=== PATIENT | female | born 1965 | race Caucasian/White ===

== ENCOUNTER 2016-07-02 15:37 | Inpatient (IN) ==
[2016-07-02] MEDS ORDERED: 0.9 % Sodium Chloride 1,000 ML IVC ONE (16:28)
[2016-07-02] MEDS ORDERED: *HR* HYDROmorphone (PF) 1 MG/ML SYRINGE IVP ONE (16:28)
[2016-07-02] MEDS ORDERED: Ondansetron 4 MG/2 ML VIAL IVP ONE (16:28)
--- NOTE | 2016-07-02 16:34 | Emergency Department Note ---
Disposition Clinical Impression: Acute abdomen, Small bowel obstruction with strangulation or infarction Disposition: Admitted As Inpatient Condition: Critical Referrals: Alfred Roblero DO [Primary Care Provider] - Forms: ED Satisfaction Letter Time of Disposition: 18:59 Abdominal Pain HPI - General Chief Complaint: ED GI Bleed Stated Complaint: GIB, abd pain Time Seen by Provider: 07/02/16 16:18 Source: patient, EMS Mode of arrival: EMS Limitations: no limitations Nursing Notes Reviewed: Yes Vital Signs Reviewed: Yes - History of Present Illness Pt Subjective Complaint: abdominal pain Onset (ago): hour(s) Consistency: constant Location: diffuse Pain Severity: severe Pain Scale: 10 Quality: stabbing Migration to: no migration Improves with: nothing Worsens with: nothing Associated symptoms: Reports: nausea, hematochezia (History reports 4 episodes of bright red blood per rectum since the onset of pain in the early hours of the morning.). Denies: vomiting Treatments prior to arrival: none - Related Data Allergies Allergy/AdvReac Type Severity Reaction Status Date / Time No Known Allergies Allergy Verified 07/02/16 16:01 All systems ED: reviewed and negative except as stated. Constitutional: Denies: fever, chills ENT ED: Denies: ear pain, throat pain Cardiovascular: Denies: chest pain, palpitations Respiratory: Reports: dyspnea. Denies: cough Gastrointestinal: Reports: abdominal pain, nausea, hematochezia. Denies: vomiting Genitourinary: Denies: urgency Musculoskeletal: Denies: back pain Integumentary: Denies: rash Abdominal Pain PMH - Past Medical History Medical history: Reports: hypertension Female Surgical History: Reports: other - Social History Smoking status: Current every day smoker Alcohol use: Reports: heavy, recent Drug use: Reports: marijuana Physical Exam - General Limitations: no limitations General appearance: alert, anxious, in distress (Seems to be in pain) - Head Head exam: atraumatic, normocephalic - Eye Eye exam: Present: normal appearance, PERRL, EOMI - ENT ENT exam: normal exam, normal oropharynx, mucous membranes dry, normal external ear exam - Neck Neck exam: Present: normal inspection, full ROM - Chest Chest inspection: Present: normal inspection, symmetric chest wall rise. Absent : tenderness - Respiratory Respiratory exam: Present: normal lung sounds bilaterally. Absent: respiratory distress, wheezes - Cardiovascular Cardiovascular exam: Present: normal rhythm, tachycardia, normal heart sounds - Abdominal Exam Abdominal exam: Present: tenderness, distention, guarding Abdominal tenderness: Present: diffuse, severe - Extremities Exam Extremities exam: Present: normal inspection, full ROM. Absent: pedal edema - Neurological Exam Neurological exam: Present: alert, oriented X3 - Psychiatric Psychiatric exam: Present: normal affect, normal mood - Skin Skin exam: Present: warm, dry. Absent: rash Course Course Narrative: Patient presents with abrupt onset of severe abdominal pain that woke her from sleep and early hours of the morning. This is progressively worsened. It is diffuse. On physical exam she is actually tender everywhere in the belly. Bowel sounds are very diminished. She is also anxious and hyperventilating. She reports for bright red bloody bowel movements since the onset of the pain. I am going to get her some pain medicines and some nausea medicines before I performed a rectal exam. I am initiating a belly pain workup combined with a GI bleed workup. Most likely the patient will require admission if she is passing that much blood. Disposition will be based on diagnostic results and reevaluation. - Reevaluation(s) Reevaluation #1: Patient states that she is not feeling a lot better after medications. She has gotten 2 L of fluid, which is about 40 mL per kilo. She has made some urine. Belly exam is not changed. CAT scan came back and shows dilated loops of proximal small bowel with gastric distention and ascites fluid. The rectal exam showed grossly bloody stool in the rectal vault. I discussed the case with the surgeon. He recommended an NG tube and he is on his way in to see the patient. Time: 18:27 - Consultations Consultation #1: Dr. Harp, general surgery - I discussed the case with the general surgeon. We reviewed the history, physical exam, labs and imaging study results. He reviewed the imaging studies from his remote location. He recommended NG tube insertion. He states he is coming to see the patient Time: 18:28 Consultation #2: Dr. Harp, general surgery - measurements here in the emergency room seeing the patient. He is concerned that she has bowel secondary to an internal abdominal hernia incarceration. He is scrambling to get this patient to the operating room. He has given orders to the nurse for antibiotics. Time: 18:58 Vital Signs Temperature 98.9 F 07/02/16 15:47 Pulse Rate 108 07/02/16 15:47 Respiratory Rate 20 07/02/16 15:47 Blood Pressure 109/84 07/02/16 15:47 O2 Sat by Pulse Oximetry 98 07/02/16 15:47 Temperature 98.9 F 07/02/16 15:47 Pulse Rate 108 07/02/16 15:47 Respiratory Rate 20 07/02/16 15:47 Blood Pressure 109/84 07/02/16 15:47 O2 Sat by Pulse Oximetry 98 07/02/16 15:47 Oxygen Delivery Oxygen Delivery Nasal Cannula Abdominal Pain - Medical Records Medical records reviewed: Yes I reviewed the patient's medical records. - Lab Data Lab results reviewed: Yes I reviewed the patient's lab results. Result diagrams: 07/02/16 17:02 07/02/16 17:02 Lab Results 07/02/16 07/02/16 07/02/16 Range/Units 17:02 17:02 17:02 WBC 23.4 H (4.3-11.1) K/mcL RBC 4.97 (3.82-4.97) M/mcL Hgb 16.4 H (11.5-15.4) g/dL Hct 49.3 H (35.3-44.9) % MCV 99.2 (83.0-100.0) fL MCH 33.0 (28.0-33.3) pg MCHC 33.3 (31.6-35.5) g/dL RDW 12.2 (11.5-14.5) % Plt Count 280 (140-400) K/mcL MPV 9.4 (9.4-12.4) fL Immature Gran % 0.9 (0-4) % Seg Neutrophils % 88.5 % Lymphocytes % 5.6 % Monocytes % 4.7 % Eosinophils % 0.0 % Basophils % 0.3 % Neutrophils # 20.7 H (1.6-8.9) K/mcL Lymphocytes # 1.3 (0.6-4.6) K/mcL Monocytes # 1.1 (0.0-1.3) K/mcL Eosinophils # 0.0 (0.0-0.6) K/mcL Basophils # 0.1 (0.0-0.2) K/mcL PT 11.6 (9.4-12.1) Seconds INR 1.1 APTT 27.0 (26.0-36.0) Seconds Sodium 139 (136-145) mEq/L Potassium 4.2 (3.5-4.5) mEq/L Chloride 110 H (98-109) mEq/L Carbon Dioxide 16 L (19-29) mEq/L BUN 17 (7-20) mg/dL Creatinine 0.85 (0.57-1.11) mg/dL Est GFR ( Amer) > 60 (> 60) Est GFR (Non-Af Amer) > 60 (> 60) BUN/Creatinine Ratio 20 (6-26) Glucose 294 H (70-99) mg/dL Calculated Osmolality 300 (280-300) Lactic Acid (0.5-2.2) mmol/L Calcium 7.8 L (8.6-10.8) mg/dL Total Bilirubin 0.5 (0.2-1.2) mg/dL Direct Bilirubin 0.2 (0.0-0.5) mg/dL Indirect Bilirubin 0.3 (0.0-1.2) mg/dL AST 11 (5-34) Units/L ALT 8 (0-55) Units/L Alkaline Phosphatase 57 (38-126) Units/L Serum Total Protein 4.9 L (6.0-8.3) g/dL Albumin 2.2 L (3.5-5.0) g/dL Globulin 2.7 (2.4-3.5) g/dL Albumin/Globulin Ratio 0.8 L (1.1-2.2) Amylase 35 (25-125) Units/L Lipase 7 L (8-78) Units/L Blood Type Antibody Screen 07/02/16 07/02/16 Range/Units 17:02 17:21 WBC (4.3-11.1) K/mcL RBC (3.82-4.97) M/mcL Hgb (11.5-15.4) g/dL Hct (35.3-44.9) % MCV (83.0-100.0) fL MCH (28.0-33.3) pg MCHC (31.6-35.5) g/dL RDW (11.5-14.5) % Plt Count (140-400) K/mcL MPV (9.4-12.4) fL Immature Gran % (0-4) % Seg Neutrophils % % Lymphocytes % % Monocytes % % Eosinophils % % Basophils % % Neutrophils # (1.6-8.9) K/mcL Lymphocytes # (0.6-4.6) K/mcL Monocytes # (0.0-1.3) K/mcL Eosinophils # (0.0-0.6) K/mcL Basophils # (0.0-0.2) K/mcL PT (9.4-12.1) Seconds INR APTT (26.0-36.0) Seconds Sodium (136-145) mEq/L Potassium (3.5-4.5) mEq/L Chloride (98-109) mEq/L Carbon Dioxide (19-29) mEq/L BUN (7-20) mg/dL Creatinine (0.57-1.11) mg/dL Est GFR ( Amer) (> 60) Est GFR (Non-Af Amer) (> 60) BUN/Creatinine Ratio (6-26) Glucose (70-99) mg/dL Calculated Osmolality (280-300) Lactic Acid 6.7 H* (0.5-2.2) mmol/L Calcium (8.6-10.8) mg/dL Total Bilirubin (0.2-1.2) mg/dL Direct Bilirubin (0.0-0.5) mg/dL Indirect Bilirubin (0.0-1.2) mg/dL AST (5-34) Units/L ALT (0-55) Units/L Alkaline Phosphatase (38-126) Units/L Serum Total Protein (6.0-8.3) g/dL Albumin (3.5-5.0) g/dL Globulin (2.4-3.5) g/dL Albumin/Globulin Ratio (1.1-2.2) Amylase (25-125) Units/L Lipase (8-78) Units/L Blood Type O POSITIVE Antibody Screen NEGATIVE - Radiology Data Radiology results reviewed: Yes I reviewed the patient's radiology results. - EKG Data EKG attestation: Yes I reviewed and interpreted this EKG. EKG shows normal: sinus rhythm, axis, intervals, QRS complexes, ST-T waves Rate: tachycardia Interpretation: other (Sinus tachycardia but no evidence of ischemic changes.)
[2016-07-02 17:20] LABS: Hematocrit 49.3 % (35.3-44.9); Hemoglobin 16.4 g/dL (11.5-15.4); Immature Granulocytes % 0.9 % (0-4); Lymphocytes % 5.6 %; Mean Corpuscular HGB Conc 33.3 g/dL (31.6-35.5); Mean Corpuscular Volume 99.2 fL (83.0-100.0); Mean Platelet Volume 9.4 fL (9.4-12.4); Monocytes % 4.7 %; Platelet Count 280 K/mcL (140-400); Red Blood Count 4.97 M/mcL (3.82-4.97); Red Cell Distribution Width 12.2 % (11.5-14.5); Segmented Neutrophils % 88.5 %
[2016-07-02 17:21] LABS: Basophils # 0.1 K/mcL (0.0-0.2); Basophils % 0.3 %; Lymphocytes # 1.3 K/mcL (0.6-4.6); Monocytes # 1.1 K/mcL (0.0-1.3); Neutrophils # 20.7 K/mcL (1.6-8.9)
[2016-07-02 17:25] LABS: INR 1.1; Prothrombin Time 11.6 Seconds (9.4-12.1)
[2016-07-02 17:38] LABS: Alanine Aminotransferase 8 Units/L (0-55); Albumin 2.2 g/dL (3.5-5.0); Albumin/Globulin Ratio 0.8 (1.1-2.2); Alkaline Phosphatase 57 Units/L (38-126); Amylase 35 Units/L (25-125); Aspartate Amino Transferase 11 Units/L (5-34); BUN/Creatinine Ratio 20 (6-26); Bilirubin,Direct 0.2 mg/dL (0.0-0.5); Bilirubin,Indirect 0.3 mg/dL (0.0-1.2); Bilirubin,Total 0.5 mg/dL (0.2-1.2); Blood Urea Nitrogen 17 mg/dL (7-20); Calcium 7.8 mg/dL (8.6-10.8); Carbon Dioxide 16 mEq/L (19-29); Chloride 110 mEq/L (98-109); Globulin 2.7 g/dL (2.4-3.5); Glucose 294 mg/dL (70-99); Lipase 7 Units/L (8-78); Osmolality,Calculated 300 (280-300); Potassium 4.2 mEq/L (3.5-4.5); Sodium 139 mEq/L (136-145); Total Protein 4.9 g/dL (6.0-8.3); eGFR For African Americans > 60 (> 60); eGFR For Non-African Americans > 60 (> 60)
[2016-07-02] MEDS ORDERED: Albuterol 2.5 MG/3 ML NEBULIZER IH ONE (18:53)
[2016-07-02] MEDS ORDERED: cefOXitin 2,000 MG in D5% in Water (Mini-Bag+) 100 ML IVPB ONE (18:55)
--- NOTE | 2016-07-02 19:02 | General Surg History&Physical ---
Date of Encounter: 07/02/16 Time of Encounter: 19:00 Assessment and Plan (1) Acute abdomen Current Visit: Yes Status: Acute The assessment and plan as outlined above was discussed with the patient and/or family members who expressed understanding and agreement. All questions were answered. I explained to the patient that based on her physical exam findings, abnormal CT findings, and elevated labs with rectal bleeding I am concerned that she has ischemic bowel. DDx include internal hernia (likely) vs an embolic event. I explained to the patient that I do think it is necessary to proceed with an exploration with a possible bowel resection versus ostomy placement depending on the surgical findings. Risks and benefits have been discussed with the patient and she agrees to the above plan. History of Present Illness Chief complaint: abdominal pain/rectal bleeding HPI: Ms. Early is a 51 year old female with a past medical history significant for tobacco abuse states that she had the onset of severe constant pain this am. She admits to nausea and vomiting and states she also had diarrhea starting today, all of which were remarkable for bright colored blood. Because of the patient's persistant continual pain she presented to the ED for further evaluation. Past Med Surg Social Fam HX - Past Medical History Medical history: hypertension - Past Surgical History Surgical History: appendectomy - Social History Smoking Status: Current every day smoker Alcohol use: heavy, recent Drug use: marijuana Medications and Allergies Allergies No Known Allergies Allergy (Verified 07/02/16 16:01) Review of Systems All systems PM: reviewed and no additional remarkable complaints except as stated All systems PM: A 10-system review of systems was performed and is negative for pertinent findings except as documented above in the HPI. - Respiratory other (history of tobacco use (1-2ppd x 30 years), ETOH useage (12pack q6oopva+) ) General Surgery Exam Initial Vital Signs Temp Pulse Resp BP Pulse Ox 98.9 F 108 20 109/84 98 07/02/16 15:47 07/02/16 15:47 07/02/16 15:47 07/02/16 15:47 07/02/16 15:47 - General physical appearance severe distress, severe pain - Eyes PERRL, normal ocular movement - Neck no masses, trachea midline, no lymphadectomy - Respiratory normal expansion, normal respiratory effort, clear to auscultation - Cardiovascular Cardiovascular exam: Present: RRR, no murmurs/rubs/gallops - Abdomen Abdomen general surgery: Present: tender, rigid (No bowel sounds present. Mottling noted of the skin of the abdomen and legs) - Integumentary Integumentary general surgery: Present: warm and dry - Neurologic Present: CN 2-12 grossly intact - Musculoskeletal Present: other (No clubbing, cyanosis, or edema) - Psychiatric Psychiatric general surgery: Present: A&Ox3 Results - Labs 07/02/16 17:02 07/02/16 17:02 Abnormal lab results WBC 23.4 K/mcL (4.3-11.1) H 07/02/16 17:02 Hgb 16.4 g/dL (11.5-15.4) H 07/02/16 17:02 Hct 49.3 % (35.3-44.9) H 07/02/16 17:02 Neutrophils # 20.7 K/mcL (1.6-8.9) H 07/02/16 17:02 Chloride 110 mEq/L (98-109) H 07/02/16 17:02 Carbon Dioxide 16 mEq/L (19-29) L 07/02/16 17:02 Glucose 294 mg/dL (70-99) H 07/02/16 17:02 Lactic Acid 6.7 mmol/L (0.5-2.2) H* 07/02/16 17:21 Calcium 7.8 mg/dL (8.6-10.8) L 07/02/16 17:02 Serum Total Protein 4.9 g/dL (6.0-8.3) L 07/02/16 17:02 Albumin 2.2 g/dL (3.5-5.0) L 07/02/16 17:02 Albumin/Globulin Ratio 0.8 (1.1-2.2) L 07/02/16 17:02 Lipase 7 Units/L (8-78) L 07/02/16 17:02 Diabetes panel 07/02/16 Range/Units 17:02 Sodium 139 (136-145) mEq/L Potassium 4.2 (3.5-4.5) mEq/L Chloride 110 H (98-109) mEq/L Carbon Dioxide 16 L (19-29) mEq/L BUN 17 (7-20) mg/dL Creatinine 0.85 (0.57-1.11) mg/dL Glucose 294 H (70-99) mg/dL Calcium 7.8 L (8.6-10.8) mg/dL AST 11 (5-34) Units/L ALT 8 (0-55) Units/L Alkaline Phosphatase 57 (38-126) Units/L Albumin 2.2 L (3.5-5.0) g/dL Calcium panel 07/02/16 Range/Units 17:02 Calcium 7.8 L (8.6-10.8) mg/dL Albumin 2.2 L (3.5-5.0) g/dL Pituitary panel 07/02/16 Range/Units 17:02 Sodium 139 (136-145) mEq/L Potassium 4.2 (3.5-4.5) mEq/L Chloride 110 H (98-109) mEq/L Carbon Dioxide 16 L (19-29) mEq/L BUN 17 (7-20) mg/dL Creatinine 0.85 (0.57-1.11) mg/dL Glucose 294 H (70-99) mg/dL Calcium 7.8 L (8.6-10.8) mg/dL Adrenal panel 07/02/16 Range/Units 17:02 Sodium 139 (136-145) mEq/L Potassium 4.2 (3.5-4.5) mEq/L Chloride 110 H (98-109) mEq/L Carbon Dioxide 16 L (19-29) mEq/L BUN 17 (7-20) mg/dL Creatinine 0.85 (0.57-1.11) mg/dL Glucose 294 H (70-99) mg/dL Calcium 7.8 L (8.6-10.8) mg/dL Total Bilirubin 0.5 (0.2-1.2) mg/dL AST 11 (5-34) Units/L ALT 8 (0-55) Units/L Alkaline Phosphatase 57 (38-126) Units/L Albumin 2.2 L (3.5-5.0) g/dL All other labs normal. - Imaging CT scan - abdomen: report reviewed, image reviewed (Evidence of distended loops of small bowel. Ascites. Possible internal hernia noted.)
[2016-07-02] MEDS ORDERED: *HR* Propofol 200 MG/20 ML VIAL IVP ONE (19:03)
[2016-07-02] MEDS ORDERED: *HR* FentaNYL (PF) 100 MCG/2 ML VIAL ONE (19:03)
[2016-07-02] MEDS ORDERED: *HR* Midazolam HCl 2 MG/2 ML VIAL ONE (19:03)
[2016-07-02] MEDS ORDERED: *HR* Rocuronium Bromide 50 MG/5 ML VIAL ONE (19:04)
[2016-07-02] MEDS ORDERED: Lidocaine -MPF 2% 2 ML VIAL ONE (19:04)
[2016-07-02] MEDS ORDERED: *HR* Succinylcholine 200 MG/10 ML VIAL IVP ONE (19:04)
--- NOTE | 2016-07-02 19:17 | Anesthesia Evaluation PreOp ---
Date of Encounter: 07/02/16 Time of Encounter: 19:15 - Past History Planned Operation: Exploratory Laparotomy Cardiac History: HTN Pulmonary History: Smoker PATIENT INTAKE COORDINATOR History: Denies Any Significant HX Other Medical History: Denies Any Significant HX Anesthesia History: No Prior Anesthetic Complications, Past Anesthesia Alcohol Use: heavy, recent Drug use: marijuana Medications and Allergies Acetaminophen [Tylenol] 500 mg PO Q6HR PRN 07/02/16 [History] Estradiol [Estrace] 1 mg PO DAILY 07/02/16 [History] HYDROcodone/Acet 5/325 mg [[place] 5-325 mg] 1 tab PO Q6H PRN 07/02/16 [History] Medroxyprogesterone Acetate [Provera] 2.5 mg PO DAILY 07/02/16 [History] Allergies No Known Allergies Allergy (Verified 07/02/16 16:01) - Meds/Allergy Pre-op Review Medications Reviewed: Yes Allergies Reviewed: Yes Beta Blockers on Current Med List: No Anesthesia Results - Labs 07/02/16 17:02 07/02/16 17:02 Laboratory Tests 07/02/16 17:02 PT 11.6 INR 1.1 APTT 27.0 - Imaging EKG: report reviewed (07/02/2016 ST, short NE interval) Anesthesia Exam Vital Signs/O2 Sat, Most Current Temp Pulse Resp BP Pulse Ox 98.9 F 142 20 126/94 99 07/02/16 15:47 07/02/16 19:02 07/02/16 19:05 07/02/16 19:05 07/02/16 19:05 Height: 5'3''/1.6 m Weight: 103 lbs/46.72 kg NPO (# of Hours): 8 - HEENT Pupil (Motor): EOMI Mallampati: II Teeth: Normal, Missing Denture Type: Upper: Complete Oral Opening: Greater than 3 - PATIENT INTAKE COORDINATOR LOC: Oriented PATIENT INTAKE COORDINATOR Motor: Normal RUE, Normal LUE, Normal RLE, Normal LLE, Normal Face PATIENT INTAKE COORDINATOR Sensory: Normal: RUE, LUE, Face, Deficit: RLE, LLE - Cardiac Rhythm: Regular Murmur: None - Pulmonary Breath Sounds: bilateral Clear Respiratory Effort: Symmetrical Anesthesia Assess/Plan ASA Score: 3, E Modified Sasha Scale for Level of Consciousness: Cooperative, oriented, and tranquil Anesthetic Plan: General Monitoring Plan: Standard Monitors Recovery Plan: PACU
[2016-07-02] MEDS ORDERED: CefOXitin 1,000 MG VIAL ONE (20:27)
[2016-07-02] MEDS ORDERED: Dexamethasone 4 MG/ML VIAL ONE (20:48)
[2016-07-02] MEDS ORDERED: Ondansetron 4 MG/2 ML VIAL ONE (20:48)
[2016-07-02] MEDS ORDERED: *HR* Morphine 10 MG/ML VIAL ONE (20:57)
[2016-07-02] MEDS ORDERED: Neostigmine Methylsulfate 3 MG/3 ML SYRINGE ONE (21:01)
[2016-07-02] MEDS: *HR* HYDROmorphone (PF) 1 MG/ML SYRINGE IVP PRN ×3 (21:40→22:10)
--- NOTE | 2016-07-02 21:41 | Operative Note ---
Date of procedure: 07/02/16 Pre-op diagnosis: Acute abdomen Post-op diagnosis: other (Ischemic small bowel) Procedure: Exploratory celiotomy with small bowel resection/ileocecectomy Anesthesia: VITO Surgeon: Navarro Harp Licensing And Registration Director: Cony Matos Specimen: ileum/cecum Condition: stable Disposition: PACU Procedure in Detail: Date of surgery: 07/02/16 After properly identifying the patient, the patient was brought to the operating room and placed in the supine position. IV sedation was achieved followed by general endotracheal intubation, the patient's abdomen was prepped and draped in normal sterile fashion. A timeout was performed noting the patient's name and procedure to be performed. The 10 blade scalpel was used to make a midline incision several centimeters from the xiphoid process extending inferiorly to above the level of the pubic symphysis. Bovie cauterization was used to dissect through the subcutaneous tissue until the abdominal wall fascia was encountered and opened. Immediately upon entry there was bloody appearing ascites which was cultured and immediately suctioned. Retractors were then placed along the abdominal wall fascia to visualize the abdominal contents which demonstrated loops of grossly ischemic and necrotic appearing distal small bowel. The small bowel was then extruded from the abdominal wall compartment showing that the terminal ileum appeared to be relatively spared although there was what appeared to be venous congestion in this portion of the mesentery. The more proximal distal ileum was grossly ischemic and necrotic appearing. This extended throughout what appeared to be the majority of the ileum into the jejunum. There was an adhesive "band" which likely caused an internal hernia causing an obstruction and strangulation of the mesenteric vessels. Bovie cauterization was used to transect the adhesion which allowed for further retraction of the small bowel contents outside of the abdominal compartment. This demonstrated a segment of the small bowel free of any type of ischemia with normal appearing mesentery. It was at this transition that the mesentery was scored with Bovie cauterization and a ALLISON stapler was used to transect across the small bowel. Since only a relatively small portion of the terminal ileum was spared the decision was made to perform a cecectomy by dissecting the right colon away from the sidewall or white line of Toldt with Bovie cauterization. This allowed for freeing up of the right colon and transection of the cecum with a ALLISON stapler. The intervening mesentery was transected with the hand-held LigaSure. The specimen was then moved from the operative field. The abdomen was irrigated with warm saline solution containing Mefoxin and the remaining portion of the small bowel was run from the ligament of Treitz to the distal small bowel stump. The patient had more than 100 cm of small bowel remaining which would decrease the risk of short gut syndrome. The colon was then examined which showed no evidence of ischemia present. The decision was made to go ahead and perform a [id number] anastomosis by using a ALLISON stapler and then closing the enterotomy with a TA stapler. The mesenteric defect was reapproximated with a 3-0 Vicryl suture while the staple line was indicated with 3-0 silk sutures. The abdomen was once again irrigated with normal saline solution containing Mefoxin and the decision was made to go ahead and complete the surgical procedure by closing the abdomen with looped #1 PDS sutures. Prior to closure of the fascia Seprafilm was placed within the abdomen to help prevent adhesions. The subcutaneous tissue was reapproximated with interrupted 2-0 Vicryl sutures in the epidermal and dermal layers were reapproximated with dawson while portions were left open for packing with quarter-inch plain Nu Gauze. Needle, sponge, and as she recounts were correct 2 and the incision was covered with 4 x 4's. The patient was aroused from IV sedation, extubated in the operating room without complication, and transported to the recovery room stable condition.
--- NOTE | 2016-07-02 22:36 | Anesthesia Evaluation Post Op ---
Date of Encounter: 07/02/16 Time of Encounter: 22:36 - Vital Signs Vital Signs: Vital Signs/O2 Sat, Most Current Temp Pulse Resp BP Pulse Ox 99.0 F 101 24 141/90 93 L 07/02/16 22:03 07/02/16 22:23 07/02/16 22:23 07/02/16 22:23 07/02/16 22:23 - Lungs Lungs: Clear Ascult./Percussion - Airway Airway: Non-obstructed - Cardiovascular Regular Rate - Mental Status Mental Status: Alert & Oriented, Answers Appropriately - Pain Pain Scale: 6 Pain Scale used: Numeric (1 - 10) - Nausea Vomiting Nausea Vomiting: Not Present - Hydration Hydration: NPO, Cali catheter - Discharge PostOp Status: Transfer Patient to floor
[2016-07-02] MEDS ORDERED: Ondansetron 4 MG/2 ML VIAL IVP PRN (23:30)
[2016-07-02] MEDS ORDERED: *HR* HYDROmorphone (PF) 1 MG/ML SYRINGE ONE (23:36)
[2016-07-03] MEDS: *HR* LORazepam 2 MG/ML VIAL IVP PRN (00:27)
[2016-07-03] MEDS: cefOXitin 1,000 MG in D5% in Water (Mini-Bag+) 100 ML IVPB SCH ×4 (00:27→23:19)
[2016-07-03] MEDS: 0.9 % Sodium Chloride 1,000 ML IVC SCH ×3 (00:28→17:17)
[2016-07-03 01:02] LABS: Bilirubin,Urine Negative (Negative); Blood,Urine Small (Negative); Clarity,Urine Cloudy (Clear); Color,Urine Yellow (Yellow); Glucose,Urine (UA) Normal (Normal); Ketones,Urine Negative (Negative); Leukocyte Esterase,Urine Negative (Negative); Nitrite,Urine Negative (Negative); Protein,Urine Trace mg/dL (Neg-Trace); Specific Gravity,Urine 1.021 (1.010-1.025); Urobilinogen,Urine Normal (Normal)
[2016-07-03 01:05] LABS: Bacteria,Urine None Seen per hpf (None-Few); Hyaline Casts,Urine Few per lpf (None-Few); RBC,Urine 0-3 per hpf (0-3); Squamous Epithelial Cell,Urine Many per lpf (None-Few); WBC,Urine 0-3 per hpf (0-3)
[2016-07-03] MEDS: *HR* HYDROmorphone (PF) 1 MG/ML SYRINGE IVP PRN ×9 (02:53→22:03)
[2016-07-03 04:29] LABS: Basophils % 0.2 %; Immature Granulocytes % 0.2 % (0-4); Lymphocytes # 1.5 K/mcL (0.6-4.6); Lymphocytes % 12.1 %; Mean Corpuscular HGB Conc 34.2 g/dL (31.6-35.5); Mean Corpuscular Hemoglobin 32.7 pg (28.0-33.3); Mean Corpuscular Volume 95.5 fL (83.0-100.0); Mean Platelet Volume 9.4 fL (9.4-12.4); Monocytes # 0.8 K/mcL (0.0-1.3); Neutrophils # 10.4 K/mcL (1.6-8.9); Platelet Count 198 K/mcL (140-400); Red Blood Count 3.98 M/mcL (3.82-4.97); Red Cell Distribution Width 12.1 % (11.5-14.5); Segmented Neutrophils % 81.5 %
[2016-07-03 04:39] LABS: BUN/Creatinine Ratio 23 (6-26); Blood Urea Nitrogen 18 mg/dL (7-20); Calcium 7.4 mg/dL (8.6-10.8); Carbon Dioxide 22 mEq/L (19-29); Chloride 109 mEq/L (98-109); Glucose 125 mg/dL (70-99); Osmolality,Calculated 285 (280-300); Potassium 4.9 mEq/L (3.5-4.5); Sodium 136 mEq/L (136-145); eGFR For African Americans > 60 (> 60); eGFR For Non-African Americans > 60 (> 60)
[2016-07-03] MEDS: Pantoprazole 40 MG VIAL IVP SCH (07:28)
[2016-07-03] MEDS: Nicotine 21 MG PATCH.TD24 TD SCH (07:30)
[2016-07-03] MEDS ORDERED: Acetaminophen IV 1,000 MG/100 ML INFUS..BTL IVPB PRN (08:15)
--- NOTE | 2016-07-03 09:03 | General Surgery Progress Note ---
<Chitra Webber Tam - Last Filed: 07/03/16 09:01> Date of Encounter: 07/03/16 Time of Encounter: 08:45 - Assessment and Plan (1) Small bowel obstruction with strangulation or infarction Current Visit: Yes Status: Resolved POD #1 Exploratory celiotomy with small bowel resection/ileocecectomy NPO while awaiting return of bowel function NG tube to LIWS IV fluids Supportive care/pain control Out of bed to chair today Continue alaniz catheter for strict I&Os Repeat am labs (2) Leukocytosis Current Visit: Yes Status: Acute Improved today 23.4>12.8 IV antibiotics- Mefoxin Repeat am labs Qualifiers: Leukocytosis type: unspecified Qualified Code(s): D72.829 - Elevated white blood cell count, unspecified (3) Tobacco abuse Current Visit: Yes Status: Acute Nicotine patch smoking cessation education (4) DVT prophylaxis Current Visit: Yes Status: Acute EPCDs to bilateral lower extremities for DVT prophylaxis Subjective Patient reports: feels better, still having pain, pain is less, no flatus, no bowel movement, fever (Tmax 101.7) Objective Vital Signs - Last 8 Hours Temp Pulse Resp BP Pulse Ox 07/03/16 08:08 101.0 F H 07/03/16 07:29 101.7 F H 95 16 135/85 97 07/03/16 04:29 105 07/03/16 03:11 120 152/99 07/03/16 02:11 119 151/106 07/03/16 01:17 94 L Intake and Output 07/02/16 07/03/16 07/03/16 23:59 07:59 15:59 Intake Total 100 / 100 Output Total 200 / 200 100 / 100 Balance -200 / 900 0 / 0 Intake: IV Fluids 100 / 100 Mefoxin 1,000 MG In 100 / 100 Dextrose 5% (Minibag+) 100 ML 100 ML @ 200 mls/ hr IVPB Q8HR [facility] Rx#: [id number] Output: Estimated Blood Loss 50 / 50 Urine Amount (Catheter) 150 / 150 Catheter 100 / 100 Other: Weight 45.9 kg Patient Weight 07/03/16 23:59 Weight 45.9 kg - General physical appearance well developed, well nourished, moderate distress, moderate pain - Eyes normal ocular movement - ENT dry mucosa, atraumatic, normocephalic - Neck Neck exam: trachea midline - Respiratory normal respiratory effort, clear to auscultation, other (diminished bibasilar bases; non-productive cough noted) - Cardiovascular Cardiovascular exam: Present: tachycardia - Abdomen Abdomen: Present: soft, tender (expected post-operative tenderness), wound ( Midline with dressing C/D/I; NG tube to LIWS with minimal amount of bilious drainage noted) - Incision Incision: Present: clean and dry, intact - Genitourinary other (alaniz catheter to SD with clear, yellow urine noted (500ml noted since OR )) - Neurologic CN 2-12 grossly intact - Psychiatric oriented to person, oriented to place, speech is normal, memory intact - Labs 07/03/16 04:12 07/03/16 04:12 Diabetes panel 07/03/16 Range/Units 04:12 Sodium 136 (136-145) mEq/L Potassium 4.9 H (3.5-4.5) mEq/L Chloride 109 (98-109) mEq/L Carbon Dioxide 22 (19-29) mEq/L BUN 18 (7-20) mg/dL Creatinine 0.79 (0.57-1.11) mg/dL Glucose 125 H (70-99) mg/dL Calcium 7.4 L (8.6-10.8) mg/dL Calcium panel 07/03/16 Range/Units 04:12 Calcium 7.4 L (8.6-10.8) mg/dL Pituitary panel 07/03/16 Range/Units 04:12 Sodium 136 (136-145) mEq/L Potassium 4.9 H (3.5-4.5) mEq/L Chloride 109 (98-109) mEq/L Carbon Dioxide 22 (19-29) mEq/L BUN 18 (7-20) mg/dL Creatinine 0.79 (0.57-1.11) mg/dL Glucose 125 H (70-99) mg/dL Calcium 7.4 L (8.6-10.8) mg/dL Adrenal panel 07/03/16 Range/Units 04:12 Sodium 136 (136-145) mEq/L Potassium 4.9 H (3.5-4.5) mEq/L Chloride 109 (98-109) mEq/L Carbon Dioxide 22 (19-29) mEq/L BUN 18 (7-20) mg/dL Creatinine 0.79 (0.57-1.11) mg/dL Glucose 125 H (70-99) mg/dL Calcium 7.4 L (8.6-10.8) mg/dL - VTE Documentation of Mechanical Device: Intermittent pneumatic compression device Consult Discharge Plan - Plan Referrals: Alfred Roblero DO [Primary Care Provider] - 07/13/16 9:30 am () - Attending Attestation I examined this patient and my medical decision-making was reviewed with the ASSISTANT FOREMAN/PA/Advanced Practice Nurse/Resident Physician. I agree with the documented findings, disposition and treatment plan as described except to the extent set forth below. <Navarro Harp - Last Filed: 07/03/16 17:04> - Assessment and Plan (1) Acute abdomen Current Visit: Yes Status: Acute Objective Vital Signs - Last 8 Hours Temp Pulse Resp BP Pulse Ox 07/03/16 15:21 97.2 F L 99 16 139/90 95 07/03/16 11:30 98.7 F 92 16 130/88 97 Intake and Output 07/03/16 07/03/16 07/03/16 07:59 15:59 23:59 Intake Total 100 / 100 1340 / 1340 Output Total 100 / 100 800 / 800 Balance 0 / 0 540 / 540 Intake: IV Fluids 100 / 100 1100 / 1100 0.9 % Sodium Chloride 1, 1000 / 1000 000 ML @ 125 mls/hr IVC . Q8H [facility] Rx#:[id number] Mefoxin 1,000 MG In 100 / 100 100 / 100 Dextrose 5% (Minibag+) 100 ML 100 ML @ 200 mls/ hr IVPB Q8HR [facility] Rx#: [id number] Other 240 / 240 Output: Catheter 100 / 100 Gastric Drainage 800 / 800 Other: Weight 45.9 kg Blood Glucose* 112 Patient Weight 07/03/16 23:59 Weight 45.9 kg - Labs 07/03/16 04:12 07/03/16 04:12 Diabetes panel 07/03/16 Range/Units 04:12 Sodium 136 (136-145) mEq/L Potassium 4.9 H (3.5-4.5) mEq/L Chloride 109 (98-109) mEq/L Carbon Dioxide 22 (19-29) mEq/L BUN 18 (7-20) mg/dL Creatinine 0.79 (0.57-1.11) mg/dL Glucose 125 H (70-99) mg/dL Calcium 7.4 L (8.6-10.8) mg/dL Calcium panel 07/03/16 Range/Units 04:12 Calcium 7.4 L (8.6-10.8) mg/dL Pituitary panel 07/03/16 Range/Units 04:12 Sodium 136 (136-145) mEq/L Potassium 4.9 H (3.5-4.5) mEq/L Chloride 109 (98-109) mEq/L Carbon Dioxide 22 (19-29) mEq/L BUN 18 (7-20) mg/dL Creatinine 0.79 (0.57-1.11) mg/dL Glucose 125 H (70-99) mg/dL Calcium 7.4 L (8.6-10.8) mg/dL Adrenal panel 07/03/16 Range/Units 04:12 Sodium 136 (136-145) mEq/L Potassium 4.9 H (3.5-4.5) mEq/L Chloride 109 (98-109) mEq/L Carbon Dioxide 22 (19-29) mEq/L BUN 18 (7-20) mg/dL Creatinine 0.79 (0.57-1.11) mg/dL Glucose 125 H (70-99) mg/dL Calcium 7.4 L (8.6-10.8) mg/dL - Attending Attestation I reviewed the above assessment and agree with the above plan.
[2016-07-03] MEDS: Ketorolac 15 MG/ML VIAL IVP SCH ×3 (13:01→23:19)
--- NOTE | 2016-07-03 16:23 | Electrocardiograph Report ---
[facility] Test Date: 2016-07-02 Pat Name: Kerry Early Department: 104 Room: 2N02 Gender: F [employer]: UCHE : 1965 Requested By: Babak Myers Order Number: [id number] Reading MD: Chitra Young Measurements Intervals Amonate Rate: 118 P: 74 VA: 104 QRS: 19 QRSD: 75 T: 78 QT: 293 QTc: 363 Interpretive Statements SINUS TACHYCARDIA WITH SHORT VA INTERVAL ABNORMAL RHYTHM ECG Electronically Signed On 07-03-16 16:18:09 EST by Chitra Young
[2016-07-03] MEDS: Chloraseptic Spray 177 ML BOTTLE MM PRN (20:12)
[2016-07-03] MEDS: Lidocaine Viscous Oral Soln 15 ML SOLUTION MM PRN (22:36)
[2016-07-04] MEDS: *HR* HYDROmorphone (PF) 1 MG/ML SYRINGE IVP PRN ×9 (01:35→23:10)
[2016-07-04] MEDS: 0.9 % Sodium Chloride 1,000 ML IVC SCH ×3 (01:38→19:26)
[2016-07-04 04:41] LABS: Basophils % 0.1 %; Hematocrit 28.2 % (35.3-44.9); Immature Granulocytes % 0.3 % (0-4); Lymphocytes # 1.5 K/mcL (0.6-4.6); Lymphocytes % 16.7 %; Mean Corpuscular Hemoglobin 32.2 pg (28.0-33.3); Mean Corpuscular Volume 94.6 fL (83.0-100.0); Mean Platelet Volume 9.3 fL (9.4-12.4); Monocytes # 0.5 K/mcL (0.0-1.3); Monocytes % 5.4 %; Neutrophils # 7.1 K/mcL (1.6-8.9); Platelet Count 159 K/mcL (140-400); Red Blood Count 2.98 M/mcL (3.82-4.97); Red Cell Distribution Width 12.3 % (11.5-14.5); Segmented Neutrophils % 77.5 %
[2016-07-04 04:43] LABS: Hemoglobin 9.6 g/dL (11.5-15.4)
[2016-07-04 04:53] LABS: BUN/Creatinine Ratio 18 (6-26); Blood Urea Nitrogen 10 mg/dL (7-20); Calcium 7.8 mg/dL (8.6-10.8); Carbon Dioxide 21 mEq/L (19-29); Chloride 107 mEq/L (98-109); Glucose 94 mg/dL (70-99); Osmolality,Calculated 281 (280-300); Sodium 136 mEq/L (136-145); eGFR For African Americans > 60 (> 60); eGFR For Non-African Americans > 60 (> 60)
[2016-07-04 04:54] LABS: Potassium 3.7 mEq/L (3.5-4.5)
[2016-07-04] MEDS: Ketorolac 15 MG/ML VIAL IVP SCH ×4 (06:12→23:11)
[2016-07-04] MEDS: Nicotine 21 MG PATCH.TD24 TD SCH (08:13)
[2016-07-04] MEDS: Pantoprazole 40 MG VIAL IVP SCH (08:14)
[2016-07-04] MEDS: cefOXitin 1,000 MG in D5% in Water (Mini-Bag+) 100 ML IVPB SCH ×3 (08:17→23:10)
--- NOTE | 2016-07-04 09:25 | General Surgery Progress Note ---
Date of Encounter: 07/04/16 Time of Encounter: 07:50 - Assessment and Plan (1) Small bowel obstruction with strangulation or infarction Current Visit: Yes Status: Resolved POD #2 Exploratory celiotomy with small bowel resection/ileocecectomy NPO while awaiting return of bowel function NG tube to LIWS IV fluids Supportive care/pain control Out of bed to chair today. Continue alaniz catheter for strict I&Os Repeat am labs (2) Leukocytosis Current Visit: Yes Status: Acute Improved today 23.4>12.8>9.1 IV antibiotics- Mefoxin Repeat am labs Qualifiers: Leukocytosis type: unspecified Qualified Code(s): D72.829 - Elevated white blood cell count, unspecified (3) Tobacco abuse Current Visit: Yes Status: Acute Nicotine patch smoking cessation education (4) DVT prophylaxis Current Visit: Yes Status: Acute EPCDs to bilateral lower extremities for DVT prophylaxis Subjective Patient reports: no new complaints, still having pain (expected post-op), no flatus, no bowel movement, shortness of breath (with nonproductive cough), afebrile Objective Vital Signs - Last 8 Hours Temp Pulse Resp BP Pulse Ox 07/04/16 08:47 105 136/86 07/04/16 07:04 98.2 F 101 16 149/85 07/04/16 04:06 98.0 F 107 20 149/85 94 L Intake and Output 07/03/16 07/04/16 07/04/16 23:59 07:59 15:59 Intake Total 1200 / 1200 1100 / 1100 Output Total 1475 / 1475 1200 / 1200 100 / 100 Balance -275 / -275 -100 / -100 -100 / -100 Intake: IV Fluids 1200 / 1200 1100 / 1100 0.9 % Sodium Chloride 1, 1000 / 1000 1000 / 1000 000 ML @ 125 mls/hr IVC . Q8H [facility] Rx#:[id number] Ofirmev 1,000 mg In 100 100 / 100 ml @ 400 mls/hr IVPB Q6HR [facility] Rx#:[id number] Mefoxin 1,000 MG In 100 / 100 100 / 100 Dextrose 5% (Minibag+) 100 ML 100 ML @ 200 mls/ hr IVPB Q8HR [facility] Rx#: [id number] Oral 0 / 0 Output: Catheter 1275 / 1275 1200 / 1200 Gastric Drainage 200 / 200 100 / 100 Other: Blood Glucose* 98 94 - General physical appearance well developed, well nourished, moderate distress, moderate pain - Eyes normal ocular movement - ENT dry mucosa, atraumatic, normocephalic - Neck Neck exam: trachea midline - Respiratory normal expansion, normal respiratory effort rales: bilateral - Cardiovascular Cardiovascular exam: Present: tachycardia - Abdomen Abdomen: Present: bowel sounds present, soft, tender (expected post-op tenderness), wound (Midline with dressing C/D/I; NG tube to LIWS with minimal amount of bilious drainage noted) - Incision Incision: Present: clean and dry, intact - Genitourinary other (alaniz catheter to SD) - Integumentary no rash - Neurologic CN 2-12 grossly intact - Psychiatric oriented to time, oriented to person, oriented to place, speech is normal, memory intact - Labs 07/04/16 04:05 07/04/16 04:05 Diabetes panel 07/04/16 Range/Units 04:05 Sodium 136 (136-145) mEq/L Potassium 3.7 D (3.5-4.5) mEq/L Chloride 107 (98-109) mEq/L Carbon Dioxide 21 (19-29) mEq/L BUN 10 (7-20) mg/dL Creatinine 0.55 L (0.57-1.11) mg/dL Glucose 94 (70-99) mg/dL Calcium 7.8 L (8.6-10.8) mg/dL Calcium panel 07/04/16 Range/Units 04:05 Calcium 7.8 L (8.6-10.8) mg/dL Pituitary panel 07/04/16 Range/Units 04:05 Sodium 136 (136-145) mEq/L Potassium 3.7 D (3.5-4.5) mEq/L Chloride 107 (98-109) mEq/L Carbon Dioxide 21 (19-29) mEq/L BUN 10 (7-20) mg/dL Creatinine 0.55 L (0.57-1.11) mg/dL Glucose 94 (70-99) mg/dL Calcium 7.8 L (8.6-10.8) mg/dL Adrenal panel 07/04/16 Range/Units 04:05 Sodium 136 (136-145) mEq/L Potassium 3.7 D (3.5-4.5) mEq/L Chloride 107 (98-109) mEq/L Carbon Dioxide 21 (19-29) mEq/L BUN 10 (7-20) mg/dL Creatinine 0.55 L (0.57-1.11) mg/dL Glucose 94 (70-99) mg/dL Calcium 7.8 L (8.6-10.8) mg/dL - VTE Documentation of Mechanical Device: Intermittent pneumatic compression device Consult Discharge Plan - Plan Referrals: Alfred Roblero DO [Primary Care Provider] - 07/13/16 9:30 am ()
[2016-07-04] MEDS: Chloraseptic Spray 177 ML BOTTLE MM PRN ×4 (12:57→23:15)
[2016-07-05] MEDS: *HR* HYDROmorphone (PF) 1 MG/ML SYRINGE IVP PRN ×10 (02:26→23:53)
[2016-07-05] MEDS: Chloraseptic Spray 177 ML BOTTLE MM PRN ×4 (02:28→12:47)
[2016-07-05] MEDS: 0.9 % Sodium Chloride 1,000 ML IVC SCH ×2 (04:07→11:22)
[2016-07-05] MEDS: Ketorolac 15 MG/ML VIAL IVP SCH ×2 (06:39→11:11)
[2016-07-05] MEDS: Lidocaine Viscous Oral Soln 15 ML SOLUTION MM PRN ×4 (06:43→15:03)
[2016-07-05] MEDS: Pantoprazole 40 MG VIAL IVP SCH (08:39)
[2016-07-05] MEDS: cefOXitin 1,000 MG in D5% in Water (Mini-Bag+) 100 ML IVPB SCH ×3 (08:39→23:53)
[2016-07-05] MEDS: Nicotine 21 MG PATCH.TD24 TD SCH (08:40)
--- NOTE | 2016-07-05 11:52 | General Surgery Progress Note ---
Date of Encounter: 07/05/16 Time of Encounter: 09:45 - Assessment and Plan (1) Small bowel obstruction with strangulation or infarction Current Visit: Yes Status: Resolved POD #2 Exploratory celiotomy with small bowel resection/ileocecectomy NPO while awaiting return of bowel function, consider clears in the AM. NG removed IV fluids Supportive care/pain control Out of bed to chair today. Continue alaniz catheter for strict I&Os Repeat am labs (2) Leukocytosis Current Visit: Yes Status: Acute Improving 23.4>12.8>9.1 on 07/04/16. Will recheck labs in the AM IV antibiotics- Mefoxin Repeat am labs Qualifiers: Leukocytosis type: unspecified Qualified Code(s): D72.829 - Elevated white blood cell count, unspecified (3) Tobacco abuse Current Visit: Yes Status: Acute Nicotine patch smoking cessation education (4) DVT prophylaxis Current Visit: Yes Status: Acute EPCDs to bilateral lower extremities for DVT prophylaxis Subjective Patient reports: no new complaints, feels better, still having pain, pain is less, flatus, bowel movement, afebrile Objective Vital Signs - Last 8 Hours Temp Pulse Resp BP Pulse Ox 07/05/16 11:32 99 07/05/16 11:00 98.4 F 101 16 127/77 95 07/05/16 08:45 94 97 07/05/16 07:00 97.9 F 101 16 137/79 96 07/05/16 04:06 97.7 F 101 15 97 Intake and Output 07/04/16 07/05/16 07/05/16 23:59 07:59 15:59 Intake Total 1000 / 1000 1100 / 1100 1100 / 1100 Output Total 1100 / 1100 1100 / 1100 1350 / 1350 Balance -100 / -100 0 / 0 -250 / -250 Intake: IV Fluids 1000 / 1000 1100 / 1100 1100 / 1100 0.9 % Sodium Chloride 1, 1000 / 1000 1000 / 1000 1000 / 1000 000 ML @ 125 mls/hr IVC . Q8H [facility] Rx#:[id number] Mefoxin 1,000 MG In 100 / 100 100 / 100 Dextrose 5% (Minibag+) 100 ML 100 ML @ 200 mls/ hr IVPB Q8HR [facility] Rx#: [id number] Oral 0 / 0 0 / 0 Output: Catheter 400 / 400 550 / 550 700 / 700 Gastric Drainage 700 / 700 550 / 550 650 / 650 Other: Meal Lunch Percent of Meal Consumed 0% Stool Size Moderate Moderate Stool Consistency loose liquid Stool Color Brown Brown Blood Tinged Blood Glucose* 86 124 71 - General physical appearance well developed, well nourished, moderate pain - Eyes normal ocular movement - ENT normal mucosa, atraumatic, normocephalic - Neck Neck exam: trachea midline - Respiratory normal respiratory effort, clear to auscultation - Cardiovascular Cardiovascular exam: Present: RRR - Abdomen Abdomen: Present: bowel sounds present, soft, tender (expected post operative tenderness), wound (Midline with dressing C/D/I; NG tube to LIWS with minimal amount of bilious drainage noted) - Incision Incision: Present: clean and dry, intact, approximated - Integumentary no rash - Neurologic CN 2-12 grossly intact - Psychiatric oriented to time, oriented to person, oriented to place, speech is normal, memory intact - Labs 07/04/16 04:05 07/04/16 04:05 - VTE Documentation of Mechanical Device: Intermittent pneumatic compression device Consult Discharge Plan - Plan Referrals: Alfred Roblero DO [Primary Care Provider] - 07/13/16 9:30 am ()
[2016-07-05] MEDS: D5% in 0.9% NACL 1,000 ML IVC SCH ×2 (15:04→23:54)
[2016-07-06] MEDS: *HR* HYDROmorphone (PF) 1 MG/ML SYRINGE IVP PRN ×8 (02:17→23:45)
[2016-07-06 05:13] LABS: Basophils % 0.2 %; Eosinophils # 0.1 K/mcL (0.0-0.6); Hematocrit 24.2 % (35.3-44.9); Hemoglobin 8.3 g/dL (11.5-15.4); Immature Granulocytes % 0.6 % (0-4); Lymphocytes # 1.3 K/mcL (0.6-4.6); Mean Corpuscular HGB Conc 34.3 g/dL (31.6-35.5); Mean Corpuscular Hemoglobin 32.3 pg (28.0-33.3); Mean Corpuscular Volume 94.2 fL (83.0-100.0); Mean Platelet Volume 9.3 fL (9.4-12.4); Monocytes # 0.7 K/mcL (0.0-1.3); Monocytes % 7.9 %; Neutrophils # 6.7 K/mcL (1.6-8.9); Platelet Count 212 K/mcL (140-400); Red Blood Count 2.57 M/mcL (3.82-4.97); Segmented Neutrophils % 75.3 %
[2016-07-06] MEDS: D5% in 0.9% NACL 1,000 ML IVC SCH (07:51)
[2016-07-06] MEDS ORDERED: 0.9 % Sodium Chloride 1,000 ML IVC SCH (08:30)
[2016-07-06] MEDS: Pantoprazole 40 MG VIAL IVP SCH (09:46)
[2016-07-06] MEDS: cefOXitin 1,000 MG in D5% in Water (Mini-Bag+) 100 ML IVPB SCH ×3 (09:46→23:38)
[2016-07-06] MEDS: Nicotine 21 MG PATCH.TD24 TD SCH (09:46)
--- NOTE | 2016-07-06 10:26 | General Surgery Progress Note ---
<Todd Guy - Last Filed: 07/06/16 12:27> Date of Encounter: 07/06/16 Time of Encounter: 07:00 - Assessment and Plan (1) Small bowel obstruction with strangulation or infarction Current Visit: Yes Status: Resolved POD #4 Exploratory celiotomy with small bowel resection/ileocecectomy on 07/02/16 NG removed yesterday, beginning clear liquids with breakfast as discussed with Dr. Aquino yesterday. IV fluids Supportive care/pain control Ensure patient get out of bed into chair today. Continue alaniz catheter for strict I&Os Repeat am labs (2) Leukocytosis Current Visit: Yes Status: Acute Resolved 23.4>12.8>9.1>8.9 IV antibiotics- Mefoxin, plan to discussion duration of antibiotics with attending. Qualifiers: Leukocytosis type: unspecified Qualified Code(s): D72.829 - Elevated white blood cell count, unspecified (3) Tobacco abuse Current Visit: Yes Status: Acute Nicotine patch smoking cessation education (4) DVT prophylaxis Current Visit: Yes Status: Acute EPCDs to bilateral lower extremities for DVT prophylaxis Subjective Patient reports: no new complaints, feels better, still having pain, pain is less (abdominal pain less, back pain worse), flatus, bowel movement, afebrile Objective Vital Signs - Last 8 Hours Temp Pulse Resp BP Pulse Ox 07/06/16 08:22 98 93 L 07/06/16 07:16 98.2 F 89 20 133/74 94 L 07/06/16 03:11 98.3 F 100 21 126/76 94 L Intake and Output 07/05/16 07/06/16 07/06/16 23:59 07:59 15:59 Intake Total 1100 / 1100 1100 / 1100 465 / 465 Output Total 450 / 450 750 / 750 Balance 650 / 650 350 / 350 465 / 465 Intake: IV Fluids 1100 / 1100 1100 / 1100 225 / 225 D5% And 0.9% Nacl 1000 Ml 1000 / 1000 1000 / 1000 225 / 225 1,000 ML @ 125 mls/hr IVC .Q8H [facility] Rx#: [id number] Mefoxin 1,000 MG In 100 / 100 100 / 100 Dextrose 5% (Minibag+) 100 ML 100 ML @ 200 mls/ hr IVPB Q8HR [facility] Rx#: [id number] Oral 0 / 0 0 / 0 240 / 240 Output: Stool 175 / 175 Catheter 450 / 450 575 / 575 Other: Meal Breakfast Stool Consistency liquid Stool Color Black Weight 48.5 kg Blood Glucose* 98 127 Patient Weight 07/06/16 23:59 Weight 48.5 kg - General physical appearance well developed, well nourished, moderate pain - Eyes normal ocular movement - ENT normal mucosa, atraumatic, normocephalic - Neck Neck exam: trachea midline - Respiratory normal respiratory effort crackles: bilateral - Cardiovascular Cardiovascular exam: Present: RRR - Abdomen Abdomen: Present: bowel sounds present, soft, tender (expected post operateive tenderness), wound (midline with dressing C/D/I) - Incision Incision: Present: clean and dry, intact, approximated. Absent: draining, swollen - Integumentary no rash - Neurologic CN 2-12 grossly intact - Psychiatric oriented to time, oriented to person, oriented to place, speech is normal, memory intact - Labs 07/06/16 04:22 07/04/16 04:05 - VTE Documentation of Mechanical Device: Intermittent pneumatic compression device Consult Discharge Plan - Plan Referrals: Alfred Roblero DO [Primary Care Provider] - 07/13/16 9:30 am () <Navarro Harp - Last Filed: 07/07/16 06:51> - Assessment and Plan (1) Acute abdomen Current Visit: Yes Status: Acute Objective Vital Signs - Last 8 Hours Temp Pulse Resp BP Pulse Ox 07/07/16 04:50 98.2 F 90 17 125/75 95 07/06/16 23:32 98.3 F 91 18 113/68 94 L Intake and Output 07/06/16 07/06/16 07/07/16 15:59 23:59 07:59 Intake Total 685 / 685 1000 / 1000 100 / 100 Output Total 600 / 600 1050 / 1050 Balance 85 / 85 -50 / -50 100 / 100 Intake: IV Fluids 325 / 325 1000 / 1000 100 / 100 0.9 % Sodium Chloride 1, 0 / 0 900 / 900 000 ML @ 125 mls/hr IVC . Q8H [facility] Rx#:[id number] D5% And 0.9% Nacl 1000 Ml 225 / 225 1,000 ML @ 125 mls/hr IVC .Q8H [facility] Rx#: [id number] Mefoxin 1,000 MG In 100 / 100 100 / 100 100 / 100 Dextrose 5% (Minibag+) 100 ML 100 ML @ 200 mls/ hr IVPB Q8HR [facility] Rx#: [id number] Oral 360 / 360 Output: Urine 600 / 600 Urethral (Alaniz) 300 / 300 Urine/Stool Mix 450 / 450 Catheter 600 / 600 Other: Meal Lunch Stool Size Moderate Stool Consistency liquid Stool Color Black # Bowel Movements 1 Weight 49.5 kg Blood Glucose* 148 Patient Weight 07/07/16 23:59 Weight 49.5 kg - Labs 07/06/16 04:22 07/04/16 04:05 - Attending Attestation I examined this patient and my medical decision-making was reviewed with the CLOTH STOCK SORTER/PA/Advanced Practice Nurse/Resident Physician. I agree with the documented findings, disposition and treatment plan as described except to the extent set forth below. Patient continues to improve. Can continue with dressing changes but start packing the midline incision. Await return of bowel function and will advance the diet expectantly. Out of bed and ambulation.
[2016-07-06] MEDS: *HR* OxyCODONE/APAP 5/325 TABLET PO PRN ×2 (13:46→19:52)
[2016-07-06] MEDS: 0.9 % Sodium Chloride 1,000 ML IVC SCH (18:51)
[2016-07-07] MEDS: *HR* OxyCODONE/APAP 5/325 TABLET PO PRN ×4 (03:34→22:42)
[2016-07-07] MEDS: *HR* HYDROmorphone (PF) 1 MG/ML SYRINGE IVP PRN ×4 (05:48→23:44)
[2016-07-07] MEDS: Pantoprazole 40 MG VIAL IVP SCH (07:45)
[2016-07-07] MEDS: Nicotine 21 MG PATCH.TD24 TD SCH (07:45)
[2016-07-07] MEDS: cefOXitin 1,000 MG in D5% in Water (Mini-Bag+) 100 ML IVPB SCH (07:46)
[2016-07-07] MEDS: 0.9 % Sodium Chloride 1,000 ML IVC SCH (07:52)
[2016-07-07 09:03] LABS: Basophils % 0.5 %; Eosinophils # 0.2 K/mcL (0.0-0.6); Eosinophils % 1.9 %; Hemoglobin 7.9 g/dL (11.5-15.4); Immature Granulocytes % 0.4 % (0-4); Lymphocytes # 1.8 K/mcL (0.6-4.6); Lymphocytes % 22.5 %; Mean Corpuscular HGB Conc 34.3 g/dL (31.6-35.5); Mean Corpuscular Volume 93.1 fL (83.0-100.0); Mean Platelet Volume 9.4 fL (9.4-12.4); Monocytes # 0.6 K/mcL (0.0-1.3); Monocytes % 8.1 %; Neutrophils # 5.2 K/mcL (1.6-8.9); Platelet Count 253 K/mcL (140-400); Red Blood Count 2.47 M/mcL (3.82-4.97); Segmented Neutrophils % 66.6 %
[2016-07-07 09:17] LABS: BUN/Creatinine Ratio 4 (6-26); Calcium 7.6 mg/dL (8.6-10.8); Carbon Dioxide 22 mEq/L (19-29); Chloride 110 mEq/L (98-109); Glucose 106 mg/dL (70-99); Osmolality,Calculated 287 (280-300); Sodium 140 mEq/L (136-145); eGFR For African Americans > 60 (> 60); eGFR For Non-African Americans > 60 (> 60)
[2016-07-07 09:23] LABS: Blood Urea Nitrogen 2 mg/dL (7-20); Potassium 2.5 mEq/L (3.5-4.5)
[2016-07-07 10:04] LABS: Magnesium 1.3 mg/dL (1.6-2.6); Phosphorous 2.3 mg/dL (2.3-4.7)
--- NOTE | 2016-07-07 11:56 | General Surgery Progress Note ---
<Navarro Harp - Last Filed: 07/07/16 16:37> - Assessment and Plan (1) Acute abdomen Current Visit: Yes Status: Acute Objective Vital Signs - Last 8 Hours Temp Pulse Resp BP Pulse Ox 07/07/16 14:39 98.7 F 93 16 128/78 95 07/07/16 09:35 97.7 F 105 16 121/66 98 Intake and Output 07/07/16 07/07/16 07/07/16 07:59 15:59 23:59 Intake Total 1100 / 1100 383 / 383 Output Total 200 / 200 Balance 1100 / 1100 183 / 183 Intake: IV Fluids 1100 / 1100 383 / 383 0.9 % Sodium Chloride 1, 1000 / 1000 283 / 283 000 ML @ 75 mls/hr IVC . [id number] [facility] Rx#: [id number] Mefoxin 1,000 MG In 100 / 100 100 / 100 Dextrose 5% (Minibag+) 100 ML 100 ML @ 200 mls/ hr IVPB Q8HR [facility] Rx#: [id number] Oral 0 / 0 Output: Urine 200 / 200 Other: Meal Lunch Percent of Meal Consumed 5% Weight 49.5 kg Patient Weight 07/07/16 23:59 Weight 49.5 kg - Labs 07/07/16 08:10 07/07/16 08:10 Diabetes panel 07/07/16 Range/Units 08:10 Sodium 140 (136-145) mEq/L Potassium 2.5 L* (3.5-4.5) mEq/L Chloride 110 H (98-109) mEq/L Carbon Dioxide 22 (19-29) mEq/L BUN 2 L (7-20) mg/dL Creatinine 0.52 L (0.57-1.11) mg/dL Glucose 106 H (70-99) mg/dL Calcium 7.6 L (8.6-10.8) mg/dL Calcium panel 07/07/16 Range/Units 08:10 Calcium 7.6 L (8.6-10.8) mg/dL Phosphorus 2.3 (2.3-4.7) mg/dL Pituitary panel 07/07/16 Range/Units 08:10 Sodium 140 (136-145) mEq/L Potassium 2.5 L* (3.5-4.5) mEq/L Chloride 110 H (98-109) mEq/L Carbon Dioxide 22 (19-29) mEq/L BUN 2 L (7-20) mg/dL Creatinine 0.52 L (0.57-1.11) mg/dL Glucose 106 H (70-99) mg/dL Calcium 7.6 L (8.6-10.8) mg/dL Adrenal panel 07/07/16 Range/Units 08:10 Sodium 140 (136-145) mEq/L Potassium 2.5 L* (3.5-4.5) mEq/L Chloride 110 H (98-109) mEq/L Carbon Dioxide 22 (19-29) mEq/L BUN 2 L (7-20) mg/dL Creatinine 0.52 L (0.57-1.11) mg/dL Glucose 106 H (70-99) mg/dL Calcium 7.6 L (8.6-10.8) mg/dL Consult Discharge Plan - Plan Referrals: Alfred Roblero DO [Primary Care Provider] - 07/13/16 9:30 am () - Attending Attestation I examined this patient and my medical decision-making was reviewed with the SENIOR IT ARCHITECT/PA/Advanced Practice Nurse/Resident Physician. I agree with the documented findings, disposition and treatment plan as described except to the extent set forth below. I reviewed the above evaluation and assessment. Overall pain has improved. Patient had a total of 4 BMs today. Tolerating soft diet. Will check potassium level in am to see if hypokalemia is resolving. <Todd Guy - Last Filed: 07/07/16 16:47> Date of Encounter: 07/07/16 Time of Encounter: 11:30 - Assessment and Plan (1) Small bowel obstruction with strangulation or infarction Current Visit: Yes Status: Resolved POD #5 Exploratory celiotomy with small bowel resection/ileocecectomy on 07/02/16 Saline lock, dc IV fluids. Tolerating liquids well, transition to mechanical soft foods. Supportive care/pain control Ensure patient get out of bed into chair today. Cali dc'd yesterday, patient voiding without difficulty. Repeat am labs (2) Hypokalemia Current Visit: Yes Status: Acute 4.9>3.7>2.5 Likely 2/2 to diarrhea. Will replace with KCl Continue to monitor. Repeat labs in AM. (3) Leukocytosis Current Visit: Yes Status: Acute Resolved 23.4>12.8>9.1>8.9>7.8 Discontinued antibiotics Qualifiers: Leukocytosis type: unspecified Qualified Code(s): D72.829 - Elevated white blood cell count, unspecified (4) Tobacco abuse Current Visit: Yes Status: Acute Nicotine patch smoking cessation education (5) DVT prophylaxis Current Visit: Yes Status: Acute EPCDs to bilateral lower extremities for DVT prophylaxis Subjective Patient reports: no new complaints, feels better, pain is less, tolerating liquids well, flatus, bowel movement, afebrile Objective Vital Signs - Last 8 Hours Temp Pulse Resp BP Pulse Ox 07/07/16 09:35 97.7 F 105 16 121/66 98 07/07/16 07:44 84 07/07/16 06:59 98 F 94 18 123/75 96 07/07/16 04:50 98.2 F 90 17 125/75 95 Intake and Output 07/06/16 07/07/16 07/07/16 23:59 07:59 15:59 Intake Total 1000 / 1000 1100 / 1100 100 / 100 Output Total 1050 / 1050 0 / 0 Balance -50 / -50 1100 / 1100 100 / 100 Intake: IV Fluids 1000 / 1000 1100 / 1100 100 / 100 0.9 % Sodium Chloride 1, 900 / 900 1000 / 1000 100 / 100 000 ML @ 75 mls/hr IVC . [id number] [facility] Rx#: [id number] Mefoxin 1,000 MG In 100 / 100 100 / 100 Dextrose 5% (Minibag+) 100 ML 100 ML @ 200 mls/ hr IVPB Q8HR [facility] Rx#: [id number] Output: Urine 600 / 600 0 / 0 Urethral (Cali) 300 / 300 Urine/Stool Mix 450 / 450 Other: Weight 49.5 kg Patient Weight 07/07/16 23:59 Weight 49.5 kg - General physical appearance well developed, well nourished, no distress - Eyes normal ocular movement - ENT normal mucosa, atraumatic, normocephalic - Neck Neck exam: trachea midline - Respiratory normal respiratory effort, clear to auscultation - Cardiovascular Cardiovascular exam: Present: RRR - Abdomen Abdomen: Present: bowel sounds present, soft, non tender, wound (Midline with dressing C/D/I) - Incision Incision: Present: clean and dry, intact - Integumentary no rash - Neurologic CN 2-12 grossly intact - Musculoskeletal normal posture - Psychiatric oriented to time, oriented to person, oriented to place, speech is normal, memory intact - Labs 07/07/16 08:10 07/07/16 08:10 Diabetes panel 07/07/16 Range/Units 08:10 Sodium 140 (136-145) mEq/L Potassium 2.5 L* (3.5-4.5) mEq/L Chloride 110 H (98-109) mEq/L Carbon Dioxide 22 (19-29) mEq/L BUN 2 L (7-20) mg/dL Creatinine 0.52 L (0.57-1.11) mg/dL Glucose 106 H (70-99) mg/dL Calcium 7.6 L (8.6-10.8) mg/dL Calcium panel 07/07/16 Range/Units 08:10 Calcium 7.6 L (8.6-10.8) mg/dL Phosphorus 2.3 (2.3-4.7) mg/dL Pituitary panel 07/07/16 Range/Units 08:10 Sodium 140 (136-145) mEq/L Potassium 2.5 L* (3.5-4.5) mEq/L Chloride 110 H (98-109) mEq/L Carbon Dioxide 22 (19-29) mEq/L BUN 2 L (7-20) mg/dL Creatinine 0.52 L (0.57-1.11) mg/dL Glucose 106 H (70-99) mg/dL Calcium 7.6 L (8.6-10.8) mg/dL Adrenal panel 07/07/16 Range/Units 08:10 Sodium 140 (136-145) mEq/L Potassium 2.5 L* (3.5-4.5) mEq/L Chloride 110 H (98-109) mEq/L Carbon Dioxide 22 (19-29) mEq/L BUN 2 L (7-20) mg/dL Creatinine 0.52 L (0.57-1.11) mg/dL Glucose 106 H (70-99) mg/dL Calcium 7.6 L (8.6-10.8) mg/dL - VTE Documentation of Mechanical Device: Intermittent pneumatic compression device
[2016-07-07] MEDS ORDERED: Magnesium Oxide 400 MG TABLET PO STA (12:56)
[2016-07-07] MEDS ORDERED: Potassium Chloride Elixir 20 MEQ/15 ML UDC PO ONE (17:00)
[2016-07-08] MEDS: *HR* OxyCODONE/APAP 5/325 TABLET PO PRN ×4 (04:19→22:26)
[2016-07-08 06:04] LABS: Basophils % 0.4 %; Eosinophils # 0.2 K/mcL (0.0-0.6); Eosinophils % 2.8 %; Hemoglobin 7.9 g/dL (11.5-15.4); Immature Granulocytes % 0.8 % (0-4); Lymphocytes # 1.7 K/mcL (0.6-4.6); Mean Corpuscular HGB Conc 34.3 g/dL (31.6-35.5); Mean Corpuscular Hemoglobin 31.9 pg (28.0-33.3); Mean Corpuscular Volume 92.7 fL (83.0-100.0); Monocytes # 0.8 K/mcL (0.0-1.3); Monocytes % 9.8 %; Neutrophils # 5.1 K/mcL (1.6-8.9); Platelet Count 278 K/mcL (140-400); Red Blood Count 2.48 M/mcL (3.82-4.97); Segmented Neutrophils % 65.2 %
[2016-07-08 06:20] LABS: BUN/Creatinine Ratio 7 (6-26); Calcium 7.9 mg/dL (8.6-10.8); Carbon Dioxide 24 mEq/L (19-29); Chloride 110 mEq/L (98-109); Glucose 95 mg/dL (70-99); Magnesium 1.3 mg/dL (1.6-2.6); Osmolality,Calculated 290 (280-300); Sodium 142 mEq/L (136-145); eGFR For African Americans > 60 (> 60); eGFR For Non-African Americans > 60 (> 60)
[2016-07-08 06:22] LABS: Blood Urea Nitrogen 3 mg/dL (7-20)
[2016-07-08] MEDS: *HR* HYDROmorphone (PF) 1 MG/ML SYRINGE IVP PRN ×2 (06:37→18:05)
[2016-07-08] MEDS: Nicotine 21 MG PATCH.TD24 TD SCH (10:20)
[2016-07-08] MEDS: Pantoprazole 40 MG VIAL IVP SCH (10:20)
[2016-07-08] MEDS: *HR* LORazepam 2 MG/ML VIAL IVP PRN (10:24)
--- NOTE | 2016-07-08 11:04 | Discharge Summary ---
Addendum entered and electronically signed by Todd Guy DO 09:21: Per discussion with IT and medical records, I need to add an addendum and resign chart to remove this from open records. Addendum entered and electronically signed by Chitra Webber CNP 07/09/16 13:45: Patient was given Ativan yesterday and had an adverse reaction. Her discharge was held to ensure that she felt better this morning. She states that she is feeling much better today. She is tolerating her diet. Denies any diarrhea. Potassium is normal today. Plan to proceed with discharge per the discharge instructions completed on 07/08/16. Original Note: <Todd Guy - Last Filed: 07/08/16 11:00> Date of Encounter: 07/08/16 Time of Encounter: 08:30 - Discharge Diagnosis (1) Small bowel obstruction with strangulation or infarction Priority: Primary Status: Resolved Comments: POD #6 Exploratory celiotomy with small bowel resection/ileocecectomy on 07/02/16 Saline lock, dc IV fluids. Tolerating soft diet. Supportive care/pain control Ambulate daily. (2) Hypokalemia Priority: Secondary Status: Acute Comments: Improved 2.5>3.0 Consider daily supplementation. (3) Leukocytosis Priority: Secondary Status: Acute Comments: Resolved Qualifiers: Leukocytosis type: unspecified Qualified Code(s): D72.829 - Elevated white blood cell count, unspecified (4) Tobacco abuse Priority: Secondary Status: Acute - Discharge Medications Prescriptions: OxyCODONE/APAP 5/325 [Percocet 5/325 MG] 1 each PO Q6HR PRN #30 tablet PRN Reason: Moderate Pain Potassium Chloride [K-Tab ER] 20 meq PO DAILY #14 tablet.er Home Medications: Estradiol [Estrace] 1 mg PO DAILY 07/02/16 [History] Medroxyprogesterone Acetate [Provera] 2.5 mg PO DAILY 07/02/16 [History] OxyCODONE/APAP 5/325 [Percocet 5/325 MG] 1 each PO Q6HR PRN #30 tablet 07/08/16 [Rx] Potassium Chloride [K-Tab ER] 20 meq PO DAILY #14 tablet.er 01/25/17 [Rx] Allergies/Adverse Reactions: Allergies No Known Allergies Allergy (Verified 07/02/16 16:01) General Surgery Exam Initial Vital Signs Temp Pulse Resp BP Pulse Ox 98.9 F 108 20 109/84 98 07/02/16 15:47 07/02/16 15:47 07/02/16 15:47 07/02/16 15:47 07/02/16 15:47 - General physical appearance well developed, well nourished, no distress - Eyes normal ocular movement - ENT normal nares, normal mucosa, no congestion - Neck trachea midline - Respiratory normal expansion, normal respiratory effort, clear to auscultation - Cardiovascular Cardiovascular exam: Present: RRR, 15, 16 - Abdomen Abdomen general surgery: Present: bowel sounds present, soft, non tender, wound (midline with dressing C/D/I) - Incision Incision: Present: clean and dry, intact - Integumentary Integumentary general surgery: Present: warm and dry, no abnormal pigmentation - Neurologic Present: CN 2-12 grossly intact, normal coordination - Musculoskeletal Present: normal gait, normal posture - Psychiatric Psychiatric general surgery: Present: appropriate, oriented to person, oriented to place, oriented to time, speech is normal, memory intact Date of admission: 07/02/16 20:13 Primary care physician: Alfred Roblero, Consults: 07/02/16 23:10 Consult to Patrol Police Lieutenant [CONS] Routine Reason for SW Consult: Financial concerns 07/06/16 12:26 Consult to Occupational Therapy [CONS] Routine Comment: Evaluate, develop and implement POC Consult to Physical Therapy [CONS] Routine Comment: Evaluate, develop and implement POC Discharging clinician: Navarro Harp Anticipated date of discharge: 07/08/16 - Patient Status Disposition: Home Health Service Condition: Good Functional capacity at discharge: independent ambulation Overall status at discharge: patient is progressing back to baseline - Discharge Instructions Follow Up With: Alfred Roblero DO [Primary Care Provider] - 07/13/16 9:30 am () Navarro Harp MD [Partnered Physician] - 07/16/16 4:15 pm Additional Instructions: #1 may shower, no tub bath for 2 weeks #2 wash incisions with soap and water and pat dry daily, apply ABD pad and tape to secure daily. Replace 1/4 inch packing daily. #3 no lifting, pushing, pulling more than 15 pounds for the next 6 weeks #4 no driving until off narcotics for 24 hours and able to safely react in the car #5 may climb stairs - Diet and Activity Activity: resume usual activities as tolerated Diet: advance to your usual diet - Hospital Course Hospital course: Ms. Early is a 51 year old female that presented to the ED for sudden onset severe abdominal pain with N/V/D. Based on patient's exam findings, CT results, and labs there was concern for ischemic bowel. Ms. Early underwent exploratory celiotomy with small bowel resection/ileocecectomy that confirmed suspicion for ischemic bowel. Dr. Harp was able to perform a [id number] anastomosis of the remaining small bowel to the colon. Patient remained on bowel rest with NG to LIWS while awaiting return of bowel function. With return of function; NG was discontinued and diet advanced. Patient currently tolerating soft diet. Vital signs stable, afebrile, ambulating independently, normal bowel and bladder function. Pain is well controlled. We will begin discharge planning and plan for outpatient follow-up in the next 1-2 weeks. Patient's son receives care through [facility], she would also like to go through this company for wound care if possible. Time spent discussing smoking cessation with patient: 3 to 10 minutes - Time Spent with Patient Total time spent providing and/or coordinating discharge services: Less than 30 minutes Labs on day of discharge: Labs from last 24 hours 07/08/16 07/08/16 05:53 05:53 WBC 7.9 RBC 2.48 L Hgb 7.9 L Hct 23.0 L MCV 92.7 MCH 31.9 MCHC 34.3 RDW 12.0 Plt Count 278 MPV 9.0 L Immature Gran % 0.8 Seg Neutrophils % 65.2 Lymphocytes % 21.0 Monocytes % 9.8 Eosinophils % 2.8 Basophils % 0.4 Neutrophils # 5.1 Lymphocytes # 1.7 Monocytes # 0.8 Eosinophils # 0.2 Basophils # 0.0 Sodium 142 Potassium 3.0 L Chloride 110 H Carbon Dioxide 24 BUN 3 L Creatinine 0.43 L Est GFR ( Amer) > 60 Est GFR (Non-Af Amer) > 60 BUN/Creatinine Ratio 7 Glucose 95 Calculated Osmolality 290 Calcium 7.9 L Magnesium 1.3 L <Chitra Webber - Last Filed: 07/08/16 13:53> - Discharge Diagnosis (1) Small bowel obstruction with strangulation or infarction Status: Resolved (2) Leukocytosis Status: Acute Qualifiers: Leukocytosis type: unspecified Qualified Code(s): D72.829 - Elevated white blood cell count, unspecified (3) Tobacco abuse Status: Acute (4) DVT prophylaxis Status: Acute General Surgery Exam Initial Vital Signs Temp Pulse Resp BP Pulse Ox 98.9 F 108 20 109/84 98 07/02/16 15:47 07/02/16 15:47 07/02/16 15:47 07/02/16 15:47 07/02/16 15:47 Date of admission: 07/02/16 20:13 Primary care physician: Alfred Roblero, Consults: 07/02/16 23:10 Consult to [employer] Police Lieutenant [CONS] Routine Reason for SW Consult: Financial concerns 07/06/16 12:26 Consult to Occupational Therapy [CONS] Routine Comment: Evaluate, develop and implement POC Consult to Physical Therapy [CONS] Routine Comment: Evaluate, develop and implement POC - Hospital Course Hospital course: Ms. Early is a 51 year old female - Time Spent with Patient Total time spent providing and/or coordinating discharge services: Labs on day of discharge: Labs from last 24 hours 07/08/16 07/08/16 05:53 05:53 WBC 7.9 RBC 2.48 L Hgb 7.9 L Hct 23.0 L MCV 92.7 MCH 31.9 MCHC 34.3 RDW 12.0 Plt Count 278 MPV 9.0 L Immature Gran % 0.8 Seg Neutrophils % 65.2 Lymphocytes % 21.0 Monocytes % 9.8 Eosinophils % 2.8 Basophils % 0.4 Neutrophils # 5.1 Lymphocytes # 1.7 Monocytes # 0.8 Eosinophils # 0.2 Basophils # 0.0 Sodium 142 Potassium 3.0 L Chloride 110 H Carbon Dioxide 24 BUN 3 L Creatinine 0.43 L Est GFR ( Amer) > 60 Est GFR (Non-Af Amer) > 60 BUN/Creatinine Ratio 7 Glucose 95 Calculated Osmolality 290 Calcium 7.9 L Magnesium 1.3 L - Attending Attestation I examined this patient and my medical decision-making was reviewed with the DRIVER/PA/Advanced Practice Nurse/Resident Physician. I agree with the documented findings, disposition and treatment plan as described except to the extent set forth below.
[2016-07-08] MEDS: Ibuprofen 600 MG TABLET PO SCH ×3 (11:33→23:22)
--- NOTE | 2016-07-08 11:47 | Physician Discharge Referral ---
Home Health/Hosp Referral Info Transfer to: Home Health Attending Provider: Dr. Navarro Harp Provider in Charge Post Discharge: PCP - Diagnosis (1) Small bowel obstruction with strangulation or infarction Priority: Primary Status: Resolved (2) Hypokalemia Priority: Secondary Status: Acute (3) Leukocytosis Priority: Secondary Status: Acute (4) Tobacco abuse Priority: Secondary Status: Acute - Respiratory Orders None Smoking Cessation: Smoking cessation has been advised. For more information, call the [employer] Tobacco Quit Line at 9-066-OJZN-NOW. - Dressing/Wound Care Site: Abdomen-Midline dawson with packing. Type of Dressing/Treatments w/Frequency: Midline- wash with soap and water and pat dry daily, replace 1/4 inch plain gauze packing daily, and apply ABD pad and tape to secure daily. - Diet/Nutrition Diet/Nutrition Orders: Regular - Activity Activity Orders: Up ad chuy, Ambulate - Services Needed Following services are medically necessary services: Nursing Other Treatments: #1 may shower, no tub bath for 2 weeks #2 wash incisions with soap and water and pat dry daily #3 no lifting, pushing, pulling more than 15 pounds for the next 6 weeks #4 no driving until off narcotics for 24 hours and able to safely react in the car #5 may climb stairs #6 Midline- wash with soap and water and pat dry daily, pack open area with 1/4 inch plain gauze, cover with 4X4, apply ABD pad and tape to secure daily. Patient has order for BMP on 07/15/16 to monitor hypokalemia. - Transfer Medications Prescriptions: OxyCODONE/APAP 5/325 [Percocet 5/325 MG] 1 each PO Q6HR PRN #30 tablet PRN Reason: Moderate Pain Potassium Chloride [K-Tab ER] 20 meq PO DAILY #14 tablet.er Home Medications: Estradiol [Estrace] 1 mg PO DAILY 07/02/16 [History] Medroxyprogesterone Acetate [Provera] 2.5 mg PO DAILY 07/02/16 [History] OxyCODONE/APAP 5/325 [Percocet 5/325 MG] 1 each PO Q6HR PRN #30 tablet 07/08/16 [Rx] Potassium Chloride [K-Tab ER] 20 meq PO DAILY #14 tablet.er 07/08/16 [Rx] Allergies/Adverse Reactions: Allergies No Known Allergies Allergy (Verified 07/02/16 16:01) Certification: Further, I certify that my clinical findings support that this patient is homebound (i.e. absences from home require considerable and taxing effort and are for medical reasons or adventism services or infrequently or short duration when for other reasons) because: Homebound Reason: Post-surgery restriction and or conditions limit ability to leave home, Leaving home requires considerable and taxing effort due to condition Attestation: My signature below is to certify that this patient is under my care and that I, or nurse practitioner, or a physician's assistant manager retail working with me, has a face-to -face encounter with this patient.
--- NOTE | 2016-07-08 15:34 | General Surgery Progress Note ---
Date of Encounter: 07/08/16 Time of Encounter: 15:32 - Assessment and Plan (1) Small bowel obstruction with strangulation or infarction Current Visit: Yes Status: Resolved Noted abdominal pain with only one BM today. Will add colace BID to her regime. Monitor BMs. Encourage OOB and ambulation. (2) Hypokalemia Current Visit: Yes Status: Acute K+ level noted to be 3.0 today. Replaced with KCL and will follow both her BMs and potassium level in the am. Subjective Patient reports: other (Patient had abdominal pain this am. Noted only one bowel movement this am. Was given Ativan for "anxiety" and had a exacerbated response. Currently feels better. No nause or vomiting.) Objective Vital Signs - Last 8 Hours Temp Pulse Resp BP Pulse Ox 07/08/16 14:30 107 20 124/80 96 07/08/16 12:12 98.7 F 104 18 127/79 95 Intake and Output 07/07/16 07/08/16 07/08/16 23:59 07:59 15:59 Intake Total 580 / 580 360 / 360 Output Total 400 / 400 350 / 350 100 / 100 Balance 180 / 180 10 10 -100 / -100 Intake: Oral 580 / 580 360 / 360 Output: Urine 400 / 400 350 / 350 100 / 100 Other: Meal Dinner Breakfast Percent of Meal Consumed 75% 100% - General physical appearance well nourished, no distress - Abdomen Abdomen: Present: soft, non tender - Incision Incision: Present: clean and dry, intact (Midline with packing. Due for change today.) - Labs 07/08/16 05:53 07/08/16 05:53 Diabetes panel 07/08/16 Range/Units 05:53 Sodium 142 (136-145) mEq/L Potassium 3.0 L (3.5-4.5) mEq/L Chloride 110 H (98-109) mEq/L Carbon Dioxide 24 (19-29) mEq/L BUN 3 L (7-20) mg/dL Creatinine 0.43 L (0.57-1.11) mg/dL Glucose 95 (70-99) mg/dL Calcium 7.9 L (8.6-10.8) mg/dL Calcium panel 07/08/16 Range/Units 05:53 Calcium 7.9 L (8.6-10.8) mg/dL Pituitary panel 07/08/16 Range/Units 05:53 Sodium 142 (136-145) mEq/L Potassium 3.0 L (3.5-4.5) mEq/L Chloride 110 H (98-109) mEq/L Carbon Dioxide 24 (19-29) mEq/L BUN 3 L (7-20) mg/dL Creatinine 0.43 L (0.57-1.11) mg/dL Glucose 95 (70-99) mg/dL Calcium 7.9 L (8.6-10.8) mg/dL Adrenal panel 07/08/16 Range/Units 05:53 Sodium 142 (136-145) mEq/L Potassium 3.0 L (3.5-4.5) mEq/L Chloride 110 H (98-109) mEq/L Carbon Dioxide 24 (19-29) mEq/L BUN 3 L (7-20) mg/dL Creatinine 0.43 L (0.57-1.11) mg/dL Glucose 95 (70-99) mg/dL Calcium 7.9 L (8.6-10.8) mg/dL - VTE Documentation of Mechanical Device: Intermittent pneumatic compression device Consult Discharge Plan - Plan Additional Instructions: #1 may shower, no tub bath for 2 weeks #2 wash incisions with soap and water and pat dry daily, apply ABD pad and tape to secure daily. Replace 1/4 inch packing daily. #3 no lifting, pushing, pulling more than 15 pounds for the next 6 weeks #4 no driving until off narcotics for 24 hours and able to safely react in the car #5 may climb stairs Referrals: Alfred Roblero DO [Primary Care Provider] - 07/13/16 9:30 am () Navarro Harp MD [Partnered Physician] - 07/16/16 4:15 pm Prescriptions: OxyCODONE/APAP 5/325 [Percocet 5/325 MG] 1 each PO Q6HR PRN #30 tablet PRN Reason: Moderate Pain Potassium Chloride [K-Tab ER] 20 meq PO DAILY #14 tablet.er
[2016-07-09] MEDS: *HR* OxyCODONE/APAP 5/325 TABLET PO PRN ×3 (04:08→15:46)
[2016-07-09 04:45] LABS: BUN/Creatinine Ratio 8 (6-26); Calcium 8.2 mg/dL (8.6-10.8); Carbon Dioxide 23 mEq/L (19-29); Chloride 109 mEq/L (98-109); Glucose 97 mg/dL (70-99); Osmolality,Calculated 287 (280-300); Potassium 3.6 mEq/L (3.5-4.5); Sodium 140 mEq/L (136-145); eGFR For African Americans > 60 (> 60); eGFR For Non-African Americans > 60 (> 60)
[2016-07-09 04:51] LABS: Blood Urea Nitrogen 4 mg/dL (7-20)
[2016-07-09] MEDS: Ibuprofen 600 MG TABLET PO SCH ×2 (05:01→11:42)
[2016-07-09] MEDS: Nicotine 21 MG PATCH.TD24 TD SCH (08:12)
[2016-07-09] MEDS: Pantoprazole 40 MG VIAL IVP SCH (08:14)
[2016-07-09 11:13] VITALS: BP 117/69
== END 2016-07-09 15:40 | disposition home health service (06) | DRG 221 ==
LOC: EMEROO 15:37 → 2NNU 19:30 → 3ANU 07-07 09:25
PROVIDERS: ADMIT Surgery; ATTEND Surgery